=== PATIENT | male | born 1990 | race Hispanic/Latino ===

== ENCOUNTER 2017-12-21 13:52 | Emergency (ER) | payer SELFPAY ==
[~2017-12-21] VITALS: Ht 177.8 cm; Wt 75.0 kg
[2017-12-21] MEDS ORDERED: METRONIDAZOL500 MG PO (16:18)
[2017-12-21 16:22] VITALS: BP 129/82
== END 2017-12-21 16:52 | disposition home or self-care (01) | DRG 951 ==
LOC: ED 13:52
DX: Z20.2 Contact with and (suspected) exposure to infections with a predominantly sexual mode of transmission (principal)